=== PATIENT | female | born 1995 | race Caucasian/White ===

== ENCOUNTER 2018-11-01 05:57 | Day surgery (SDC) | payer OTHER ==
[2018-11-01] MEDS ORDERED: FENTAnyl 50 MCG/ML VIAL (09:11)
[2018-11-01] MEDS ORDERED: MIDAZOLAM 1 MG/ML 2 ML INJ ×2 (09:11)
== END 2018-11-01 10:06 | disposition home or self-care (01) ==
LOC: GIL 05:57
DX: K29.30 Chronic superficial gastritis without bleeding (principal)
CPT/HCPCS: 43239; 84703; 88305; 88312